=== PATIENT | male | born 1965 | race Two or more races ===

== ENCOUNTER 2017-08-04 17:03 | Emergency (ER) | payer OTHER ==
[~2017-08-04] VITALS: Ht 172.7 cm; Wt 68.0 kg
--- NOTE | 2017-08-04 17:05 | NUR ---
PT BIBRA FROM [facility], PER EMS REPORT, STAFF NOTED PT TO HAVING HIS EYES ROLLED UP AND BLOOD TINGED SALIVA BY THE CHEEKS. PT IS AAOX3 GROCERY MANAGER. GOWNED AND PLACED ON MONITOR. HYPOTENSIVE GROCERY MANAGER. AWAITING MD JAMISON.
--- NOTE | 2017-08-04 17:14 | NUR ---
DR CASTELAN AT BEDSIDE FOR EVAL.
--- NOTE | 2017-08-04 17:25 | NUR ---
IV LINE STARTED BLOOD DRAWN AND SENT TO LAB.
[2017-08-04] MEDS ORDERED: phenytoin SODIUM IV 1,000 MG in IV NS 0.9% 100 ML IV ONE (17:30)
[2017-08-04] MEDS ORDERED: IV NS 0.9% 1,000 ML BAG IV ONE (17:30)
[2017-08-04 17:36] LABS: BASOPHILS % (AUTO) 0.8 % (0.0-2.0); EOSINOPHILS # (AUTO) 0.1 /CMM (0.0-0.7); EOSINOPHILS % (AUTO) 1.2 % (0.0-6.0); HEMATOCRIT 36 % (39-51); HEMOGLOBIN 12.3 g/dL (13.5-17.5); LYMPHOCYTES # (AUTO) 0.9 /CMM (0.8-4.8); LYMPHOCYTES % (AUTO) 16.1 % (20.0-44.0); MEAN CORPUSCULAR HEMOGLOBIN 36 PG (26.0-33.0); MEAN CORPUSCULAR HGB CONC 35 g/dl (31.0-36.0); MEAN CORPUSCULAR VOLUME 105 fL (80-96); MONOCYTES # (AUTO) 0.8 /CMM (0.1-1.30); MONOCYTES % (AUTO) 13.8 % (2.0-12.0); NEUTROPHILS # (AUTO) 3.9 /CMM (1.8-8.9); NEUTROPHILS % (AUTO) 68.1 % (43.0-81.0); PLATELET COUNT (AUTO) 103 /CMM (150-450); RDW COEFFICIENT OF VARIATION 15.4 (11.5-15.0); RED BLOOD CELL COUNT(AUTO) 3.39 MIL/uL (4.5-6.0); WHITE BLOOD COUNT (AUTO) 5.8 K/uL (4.3-11.0)
--- NOTE | 2017-08-04 17:37 | NUR ---
PT TO RADIOLOGY FOR HEAD CT SCAN VIA [facility].
[2017-08-04 17:47] LABS: CALCIUM, SERUM 9.8 mg/dL (8.5-10.1); CREATININE 0.8 mg/dL (0.6-1.3); POTASSIUM 4.3 mmol/L (3.5-5.1)
[2017-08-04 17:54] LABS: ALBUMIN 2.3 g/dL (3.4-5.0); BILIRUBIN,DIRECT 1.1 mg/dL (0.0-0.2); BILIRUBIN,TOTAL 1.8 mg/dL (0.2-1.0)
[2017-08-04 19:52] LABS: APPEARANCE,URINE CLEAR (CLEAR); BILIRUBIN,URINE NEGATIVE (NEGATIVE); BLOOD, URINE NEGATIVE Ery/uL (NEGATIVE); COLOR,URINE YELLOW (YELLOW); KETONES,URINE NEGATIVE (NEGATIVE); LEUKOCYTE ESTERASE ,URINE NEGATIVE (NEGATIVE); NITRITE, URINE NEGATIVE (NEGATIVE); PH,URINE 6.5 (5.0-8.0); PROTEIN,URINE NEGATIVE (NEGATIVE); UGLUCOSE NEGATIVE (NEGATIVE); UROBILINOGEN,URINE 0.2 EU/dL (0.2)
--- NOTE | 2017-08-04 21:50 | NUR ---
Patient discharged to home in stable condition. Written and verbal after care instructions given. Patient verbalizes understanding of instruction.IV removed. Catheter intact and site benign. Pressure and 4x4 applied to site. No bleeding noted.
[2017-08-04 21:51] VITALS: BP 121/60
== END 2017-08-04 21:51 | disposition home or self-care (01) ==
LOC: ER 17:05
DX: R56.9 Unspecified convulsions (principal); G93.89 Other specified disorders of brain; K70.30 Alcoholic cirrhosis of liver without ascites; Z86.73 Personal history of transient ischemic attack (TIA), and cerebral infarction without residual deficits; Z88.0 Allergy status to penicillin
CPT/HCPCS: 36415; 70450; 71010; 80048; 80076; 80305; 81001; 85025; 93005; 96365; 99285; A4606; J1165; J7030 ×2; Z7610; 81000-TC